=== PATIENT | female | born 1985 | race Caucasian/White ===

== ENCOUNTER 2020-05-06 20:40 | Inpatient (IN) | payer OTHER ==
[~2020-05-06] VITALS: Ht 165.1 cm; Wt 85.2 kg
[2020-05-06] MEDS ORDERED: PENICILLIN G POTASSIUM IV 5 MU in D5W MINI-BAG PLUS 100 ML IV STA (21:17)
[2020-05-06] MEDS ORDERED: LR 1,000 ML IV SCH (21:17)
[2020-05-06] MEDS ORDERED: LACTATED RINGER'S 1000 ML IV ONE (21:30)
[2020-05-06 22:16] LABS: HEMATOCRIT 36.1 % (36.0-47.0); HEMOGLOBIN 11.6 g/dl (12.0-15.5); MEAN CORPUSCULAR HEMOGLOBIN 30.3 pg (27.0-33.0); MEAN CORPUSCULAR HGB CONC 32.1 g/dl (32.0-36.5); MEAN CORPUSCULAR VOLUME 94.3 fl (80.0-96.0); PLATELET COUNT, AUTOMATED 198 10^3/uL (150-450); RED BLOOD COUNT 3.83 10^6/uL (4.00-5.40); WHITE BLOOD COUNT 11.2 10^3/uL (4.0-10.0)
[2020-05-06] MEDS ORDERED: FENTANYL 2MCG/ML ROPIVACAINE 0.2% IN 0.9% NACL 100ML IVBAG As Ordered ONE (22:27)
[2020-05-06] MEDS ORDERED: CALCIUM CARBONATE 500 MG CHEW U/D PO ONE (22:30)
[2020-05-06] MEDS ORDERED: diphenhydrAMINE 50MG/ML VIAL (J1200) IV PRN (23:20)
[2020-05-06] MEDS ORDERED: REFRIGERATOR IV KEYS XX PRN (23:20)
[2020-05-06] MEDS ORDERED: EPIDURAL COMMENT XX SCH (23:20)
[2020-05-06] MEDS ORDERED: FENTANYL/ROPIVACAINE/NACL BAG 100 ML EPIDURAL SCH (23:20)
[2020-05-06] MEDS ORDERED: EPIDURAL/PCA KEYS XX PRN (23:20)
[2020-05-06] MEDS ORDERED: ONDANSETRON 4MG/2ML VIAL IV PRN (23:20)
[2020-05-06] MEDS ORDERED: NALOXONE INJ 0.4MG/1ML VIAL (J2310 PER 1MG) IV PRN (23:20)
[2020-05-06] MEDS ORDERED: LACTATED RINGER'S 1000 ML IV PRN (23:20)
[2020-05-06] MEDS ORDERED: ePHEDrine SULFATE 25 MG/5 ML(5MG/ML) SYRINGE IV PRN (23:20)
--- NOTE | 2020-05-06 23:50 | HPEPDOC ---
Obstetrical History & Physical General Date of Admission May 06, 2020 at 21:25 Primary Care Physician: Rafa Ruiz MD History of Present Illness 35 Y0 A1 ADMITTED IN ACTIVE LABOR AT 5 CM HISTORY GBS POSITIVE NO BLEEDING NO LOSS OF FLUID AT 39.2 WEEKS HAVING MEMBRANES SWEPT TODAY Chief Complaint: Contractions, term Age: 35 : 4 Term: 2 Pre-term: 0 Abortions: 1 Livin Care Care: Good Care Dating Final EDC: May 11, 2020 Final EDC for Daily Update: May 11, 2020 Final EDC by: LMP LMP: Aug 05, 2019 Weeks + Days: 11.4 Estimated Date of Confinement: May 11, 2020 EGA at Admission: 39.3 Antepartum Course Height (inches): 66 Pre- weight (lbs.): 164 Admission Weight (lbs.): 187 Change in Weight (lbs.): 23 Past Medical History Past Obstetrical History : Past Obstetrical History: Multigravida Date of Delivery: Feb 15, 2017 Gestation: 37 Type of Delivery: Spontaneous Vaginal Del. Complications: Yes Past Medical History Medical History MIGRAINE HEADACHE , SUBCLINICAL FIBROID Surgical History: Mills teeth Family History Significant Family History: No pertinent family hx Social History Marital Status: Family situation: Spouse/partner home Psychosocial History: No pertinent psych hx * Smoker: non-smoker Alcohol: Denies Drugs: denies Abuse Violence Screening Have you been hit/kicked/slapp: No Have you been sexually assault: No Imunizations Tdap status: current Influenza Status: current Allergies Coded Allergies: No Known Allergies (Unverified , 05/06/20) Physical Examination Physical Examination GENERAL: Alert and oriented times three. BREAST: . ABDOMEN: Gravid and non-tender to touch. FETUS: Is vertex (VTX) by sterile vaginal examination (SVE), fetus is vertex (VTX) by Dayo. HEART RATE: Regular rate and rhythm. LUNGS: Clear to auscultation (CTA). EXTREMITIES: No edema. No clonus. Deep tendon reflexes (DTRs) NORMAL Other physical findings DISTRESSED ACTIVE LABOR 5 CM 80% EFFACED 0 STATION Laboratory Data 24H LABS Laboratory Tests 2 05/06/20 22:12: Nucleated Red Blood Cells % (auto) 0.0 CBC/BMP Laboratory Tests 05/06/20 22:12 Pertinent Laboratoy Data Blood Type: O+ RBC Antibody Screen: Negative HIV: Negative Hepatitis B: Negative Rapid Plasma Reagin: Nonreactive Rubella: Immune Varicella: Immune Chlamydia/Gonorrhea: Negative Group B Streptococcus: Positive Cystic Fibrosis: Negative Anatomy Ultrasound Placenta Location: Anterior Normal Anatomy: Yes Placenta Previa: No Steroid Therapy Steroid Therapy: No Vaginal Examination Dilation: 5 cm Effacement: 80% Station: 0 Cervical Consistency: Soft Cervical Position: Anterior Presentation: Cephalic presentation Assessment Variability: Moderate Accelerations: Positive Decelerations: None Tocometer Contractions: Yes Frequency: every 1-3 min. Duration: less than 60 seconds Strength: palpated as moderate Assessment/Plan Assessment 35year-old (G)4para (P3 at 39.3weeks by 10.6 week ultrasound. Presents to Labor and Delivery (L&D) . Plan Admit and orient. 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 Diet: NPO. Group B Streptococcus (GBS) POSITIVE Labs and intravenous (IV) per unit protocol. Counseled on Pitocin AUGMENT LABOR. Lactated Ringers (LR): BolUS 1000 mL, then at 125 mL/hr. Anticipate [normal spontaneous delivery ()]. C-S as appropriate. Labor and Delivery Counseling REVIEWED RISK RE VAGINAL DELIVERY HEMORRHAGE INFECTION RUPTURE UTERUS EMG CS NEED FOR BLOOD TRANSFUSION REMOTE HYSTERECTOMY REPAIR LACERATIONS POSSIBLE ADMISSION TO NICU Rafa Ruiz MD May 06, 2020 23:49
[2020-05-07] MEDS ORDERED: OXYTOCIN 30 UNITS IN 0.9% NaCl 500ML IV BAG (J2590) As Ordered ONE (00:18)
[2020-05-07 01:20] LABS: CORD GAS ABE V -1.2; CORD GAS HCO3 V 23.9 MEQ/L; CORD GAS PCO2 V 41.4 mmHg; CORD GAS PH V 7.379 UNITS; CORD GAS PO2 V 30.8 mmHg; CORD GAS SBC V 22.8 MEQ/L; CORD GAS TCO2 V 25.2 MEQ/L
[2020-05-07 01:23] LABS: CORD GAS ABE A -1.8; CORD GAS HCO3 A 23.9 MEQ/L; CORD GAS O2 SAT A 75.2 %; CORD GAS PCO2 A 44.1 mmHg; CORD GAS PH A 7.352 UNITS; CORD GAS PO2 A 29.5 mmHg; CORD GAS SBC A 22.3 MEQ/L; CORD GAS TCO2 A 25.3 MEQ/L
[2020-05-07] MEDS ORDERED: PENICILLIN G POTASSIUM IV 2.5 MU in IV 1 EA IV SCH (01:55)
[2020-05-07] MEDS ORDERED: MEASLES,MUMPS,RUBELLA VACCINE INJ (MMR-II) (90707) SC SCH (02:30)
[2020-05-07] MEDS ORDERED: ACETAMINOPHEN TAB 650MG DOSE (2X325MG) PO PRN (02:30)
[2020-05-07] MEDS ORDERED: OXYTOCIN DRIP 30 UNITS in IV 1 EA IV ONE (02:30)
[2020-05-07] MEDS ORDERED: ANUSOL HC CREAM 30GM TOP PRN (02:30)
[2020-05-07] MEDS ORDERED: DOCUSATE SODIUM 100MG CAPSULE PO PRN (02:30)
[2020-05-07] MEDS ORDERED: OXYTOCIN INJ 10 UNITS/ML VIAL (J2590) IV ONE (02:30)
[2020-05-07] MEDS ORDERED: IBUPROFEN 600MG TAB PO PRN (02:30)
[2020-05-07] MEDS ORDERED: RHOGAM 300 MCG (1500 IU) INJ (J2790) IM SCH (02:30)
[2020-05-07] MEDS ORDERED: BENZOCAINE 20% HEMORRHOIDAL OINTMENT 28GM TUBE TOP PRN (02:30)
[2020-05-07] MEDS ORDERED: MOM 30ML SUSPENSION UDC PO PRN (02:30)
[2020-05-07] MEDS ORDERED: METHYLERGONOVINE MALEATE 0.2 MG TAB PO PRN (02:30)
[2020-05-07] MEDS ORDERED: OXYTOCIN INJ 10 UNITS/ML VIAL (J2590) As Ordered ONE (02:30)
[2020-05-07 03:19] VITALS: BP 123/67
[2020-05-07 05:51] VITALS: BP 118/67
[2020-05-07] MEDS: PRENATAL VITAMINS CHEWABLE TABLET PO SCH (08:28)
--- NOTE | 2020-05-07 11:01 | DN ---
DELIVERY NOTE DATE OF DELIVERY: 05/07/2020 TIME OF : GENDER: Male. APGARS: 8 and 8. DESCRIPTION OF DELIVERY: This lady is a 5, para 3, admitted in active labor. She had an epidural in place and GBS prophylaxis at full dilatation. She had an ARM draining volumes of clear lochia. Had a spontaneous vaginal delivery of a live male infant weighing 7 pounds 3 ounces (3250 grams). Apgars of 8 and 8 at one and five minutes respectively. Arterial pH was 7.35, base excess -1.8; venous pH 7.39, base excess -1.2. The placenta delivered spontaneously thereafter with three vessels and the cord membranes and tissues intact. She previously had a diagnosis of velamentous insertion of the cord, which was not proven on examination of the placenta. The uterus contracted well under Pitocin. On vaginal examination anterior, posterior, and lateral harden were complete. The cervix had a bruise on the anterior lip as she had been pushing through that anterior lip. Sphincter was intact. Mucosa was intact. The uterus again was replaced in anatomical position well contracted under Pitocin. The patient and baby tolerating procedure well.
[2020-05-07 11:40] LABS: HIV 1&2 SCREEN CENTAUR NEGATIVE (NEGATIVE)
[2020-05-07] MEDS: IBUPROFEN 800 MG TAB PO PRN (12:15)
[2020-05-07] MEDS: ACETAMINOPHEN 500 MG TAB PO PRN (16:02)
[2020-05-07 18:00] VITALS: BP 113/64
[2020-05-08] MEDS: IBUPROFEN 800 MG TAB PO PRN ×2 (00:25→17:24)
[2020-05-08 06:00] VITALS: BP 130/76
[2020-05-08] MEDS: PRENATAL VITAMINS CHEWABLE TABLET PO SCH (07:38)
[2020-05-08] MEDS: ACETAMINOPHEN 500 MG TAB PO PRN (07:39)
--- NOTE | 2020-05-08 07:58 | DS.PDOC ---
Discharge Summary General Date of Admission May 06, 2020 at 21:25 Date of Discharge May 08, 2020 Discharge Summary HOSPITAL COURSE: Ms. Arevalo is a 35 yo G4 now P3 who underwent an uncomplicated in the cotton breeder hours of [id number] after being admitted for active labor. Her course has been unremarkable. On her day of discharge she met all appropriate discharge criteria. She was ambulating, voiding, tolerating a regular diet, and had minimal lochia. DISCHARGE MEDICATIONS: Please see below. ALLERGIES: Please see below. PHYSICAL EXAMINATION ON DISCHARGE: VITAL SIGNS: Please see below. GENERAL: AAOX3, NAD, pleasant and conversant ABDOMINAL EXAMINATION: Fundus firm at U-2. No fundal tenderness EXTREMITIES: No edema PSYCHIATRIC EXAMINATION: Affect appropriate LABORATORY DATA: Please see below. ACTIVITY: Pelvic rest for 6 weeks DIET: Regular diet DISCHARGE PLAN: Discharge home DISPOSITION: Discharge home on [id number]. DISCHARGE INSTRUCTIONS: 1. Pelvic rest for 6 weeks ITEMS TO FOLLOWUP ON ON OUTPATIENT: 1. appointment in 6-8 weeks DISCHARGE CONDITION: Stable. TIME SPENT ON DISCHARGE: Greater than 20 minutes. Vital Signs/I&Os Vital Signs Date Time Temp Pulse Resp B/P (MAP) Pulse Ox O2 Delivery O2 Flow Rate FiO2 05/08/20 06:00 99.0 92 18 130/76 (94) 99 05/07/20 05:51 Room Air Discharge Medications No Active Prescriptions or Reported Meds Allergies Coded Allergies: No Known Allergies (Unverified , 05/06/20) MIRYAM ARCHIBALD DO May 08, 2020 07:58
[2020-05-08 08:00] LABS: HEMATOCRIT 34.5 % (36.0-47.0); HEMOGLOBIN 11.2 g/dl (12.0-15.5); MEAN CORPUSCULAR HEMOGLOBIN 30.9 pg (27.0-33.0); MEAN CORPUSCULAR HGB CONC 32.5 g/dl (32.0-36.5); MEAN CORPUSCULAR VOLUME 95.3 fl (80.0-96.0); PLATELET COUNT, AUTOMATED 148 10^3/uL (150-450); RED BLOOD COUNT 3.62 10^6/uL (4.00-5.40); WHITE BLOOD COUNT 9.3 10^3/uL (4.0-10.0)
--- NOTE | 2020-05-11 08:18 | IPN ---
PROGRESS NOTE DATE: 05/07/2020 This patient has been requested circumcision of her male . After discussing risks and benefits of the circumcision, the medical, the nonmedical indications of the penile block and aftercare, expressed understanding of penile block, aftercare and bleeding, signed the consent form. All questions were answered, 20 minute discussion. We await the clearance by the client experience consultant. Susan Guaman OB
== END 2020-05-08 17:25 | disposition home or self-care (01) | DRG 807 ==
LOC: M LDO 20:40 → M LDI 21:25 → M OBS 05-07 02:53
PROVIDERS: ADMIT Obstetrics & Gynecology; ATTEND Obstetrics & Gynecology
PROC: 10E0XZZ Delivery of Products of Conception, External Approach (ICD-10-PCS; principal; 2020-05-07)
PROC: 10907ZC Drainage of Amniotic Fluid, Therapeutic from Products of Conception, Via Natural or Artificial Opening (ICD-10-PCS; 2020-05-07)
DX: O99.824 Streptococcus B carrier state complicating childbirth (principal); Z37.0 Single live birth; Z3A.39 39 weeks gestation of pregnancy